=== PATIENT | female | born 1950 | race Asian ===

== ENCOUNTER 2017-05-09 17:45 | Emergency (ER) | payer SELFPAY ==
--- NOTE | 2017-05-09 21:10 | Emergency Department Report ---
HPI - General Chief Complaint: Psych Time Seen by Provider: 05/09/17 20:04 - HPI HPI: The patient's is 66-year-old female presents for evaluation of mental health. The patient presents via [facility] [employer] after being found wandering back and forth outside in a neighbor's yard. The patient admits to sadness for an unknown amount of time. The patient denies fever, headache, unexplained weight loss or weight gain, heat or cold intolerance, skin, hair, or nail changes, neuro deficits, homicidal ideations, or auditory or visual hallucinations. ED Past Medical Hx - Past Medical History Hx Psychiatric Treatment: Yes (Bipolar and schizophrenia) - Social History Smoking Status: Unknown if ever smoked - Medications Home Medications: Home Medications Medication Instructions Recorded Confirmed Last Taken Type No Known Home Medications [No 07/02/14 07/02/14 Unknown History Reported Home Medications] ED Review of Systems ROS: Stated complaint: 1013 Other details as noted in HPI Constitutional: denies: fever ENT: denies: throat or neck pain Respiratory: denies: cough, shortness of breath Cardiovascular: denies: chest pain Endocrine: denies unexplained weight loss or gain Gastrointestinal: denies: abdominal pain, nausea Genitourinary: denies: dysuria Musculoskeletal: denies: leg swelling Skin: denies: rash Neurological: denies: headache Hematological/Lymphatic: denies: easy bleeding or easy bruising Psych: admits to sadness Physical Exam - Physical Exam Vital Signs: Vital Signs 05/09/17 20:04 Respiratory 16 Rate Physical Exam: General: well-nourished, well-developed, no acute distress Head: Normocephalic, atraumatic Eyes: normal sclera ENT: Mucous membranes are pink and moist Neck: trachea midline, neck supple, No neck stiffness, no cervical adenopathy Respiratory: Breath sounds equal bilaterally, no wheezing, rales, or rhonchi Cardio: S1 and S2 present, no murmurs, rubs, gallops, capillary refill is brisk Abdomen: Normoactive bowel sounds, soft abdomen, no rigidity, no guarding or rebound tenderness Musc: No pitting edema Skin: No rash Neuro: no facial drooping, normal speech Psych: Flat affect, patient withdrawn, depressed mood, refuses to cooperate, delusional ED Course Vital Signs 05/09/17 20:04 Respiratory 16 Rate ED Medical Decision Making - Lab Data Result diagrams: 05/09/17 21:19 05/10/17 00:06 - Medical Decision Making The patient was seen and examined by myself. The patient is placed on a process worker and continuous pulse ox. On initial evaluation, the patient was found to be in no distress. Labs are obtained. Lab results revealed mildly elevated potassium level of 5.2, and elevated hemoglobin and hematocrit consistent with hemoconcentration exam findings of dehydration here otherwise labs are grossly unremarkable. The patient is given 1 L normal fluid bolus for treatment of her dehydration and borderline hyperkalemia. The patient is medically clear. Mental health is consulted. Mental health evaluates the patient and agrees that the patient is unable to demonstrate competence to care for herself. A 1013 is completed. Psychiatry and social work consults have been placed. Critical care attestation.: If time is entered above; I have spent that time in minutes in the direct care of this critically ill patient, excluding procedure time. ED Disposition Clinical Impression: Mood disorder, Dehydration, Acute hyperkalemia Disposition: DC/TX-65 PSY HOSP/PSY UNIT Is pt being admited?: No Does the pt Need Aspirin: No Condition: Serious Referrals: JESSICA VELIZ MD [Primary Care Provider] - 3-5 Days Time of Disposition: 21:10
[2017-05-09 21:35] LABS: Basophils % (Auto) 0.2 % (0.0-1.8); Hematocrit 43.7 % (30.3-42.9); Hemoglobin 14.4 gm/dl (10.1-14.3); Lymphocytes % (Auto) 8.6 % (13.4-35.0); Mean Corpuscular HGB Conc 33 % (30-34); Mean Corpuscular Hemoglobin 30 pg (28-32); Mean Corpuscular Volume 91 fl (79-97); Monocytes # (Auto) 0.8 K/mm3 (0.0-0.8); Platelet Count 303 K/mm3 (140-440); Red Blood Count 4.81 M/mm3 (3.65-5.03)
[2017-05-09 21:51] LABS: Calcium 9.5 mg/dL (8.4-10.2)
[2017-05-09] MEDS ORDERED: NACL 0.9% 1000 ML 1,000 ML IV ONE (23:50)
[2017-05-10] MEDS ORDERED: KIONEX PO ONE (00:02)
[2017-05-10 00:33] LABS: Calcium 9.1 mg/dL (8.4-10.2)
[2017-05-10 01:37] LABS: Bacteria,Urine 1+ /HPF (Negative); Hyaline Casts,Urine 1 /LPF; Mucus,Urine FEW /HPF
[2017-05-10 01:38] LABS: Bilirubin,Urine NEG (Negative); Blood,Urine LG (Negative); Color,Urine Amber (Yellow)
[2017-05-10 01:54] LABS: Amphetamine Screen,Urine PRESUMPTIVE NEGATIVE; Benzodiazepines Screen,Urine PRESUMPTIVE NEGATIVE; Cannabinoid Screen,Urine PRESUMPTIVE NEGATIVE; Cocaine Screen,Urine PRESUMPTIVE NEGATIVE; Methadone Screen,Urine PRESUMPTIVE NEGATIVE; Opiate Screen,Urine PRESUMPTIVE NEGATIVE
--- NOTE | 2017-05-10 03:36 | Cat Scan Report ---
FINAL REPORT EXAM: CT HEAD/BRAIN WO CON HISTORY: headache TECHNIQUE: Routine axial imaging was obtained of the brain without IV contrast. FINDINGS: The ventricular system is appropriate in size and is symmetric. There is no evidence of acute stroke or hemorrhage. The basal cisterns appear normal. The visualized sinuses are clear. The mastoid air cells are well pneumatized. The calvarium is unremarkable. IMPRESSION: No acute intracranial process.
--- NOTE | 2017-05-10 13:04 | Consultation ---
History of Present Illness - Reason for Consult Consult date: 05/10/17 Reason for consult: Mental Health Evaluation Requesting physician: ROBERT CAVAZOS - Chief Complaint Chief complaint: "Patient speak intermittently" - History of Present Psychiatric Illness 66-year-old female presents for evaluation of mental health. The patient presents via [facility] [employer] after being found wandering back and forth outside in a neighbor's yard. Today the patient is calm during the assessment. She stated her name only when asked. Per the staff, the patient speak "sometimes." She wears gloves on her hands, but will not elaborate why. The patient was admitted to [facility] in 2014 for similar bizarre behavior. Per the record in 2015, the patient has a hx of schizophrenia. Per her assigned RN, the patient isn't eating or drinking. Medications and Allergies Allergies Allergy/AdvReac Type Severity Reaction Status Date / Time No Known Allergies Allergy Unverified 07/02/14 17:03 Home Medications Medication Instructions Recorded Confirmed Last Taken Type No Known Home Medications [No 07/02/14 07/02/14 Unknown History Reported Home Medications] Past psychiatric history - Past Medical History Past Medical History: other (Unable to obtain) Past Surgical History: Other (Unable to obtain) - past Psychiatric treatment and history psychiatric treatment history: Unable to obtain a psy hx and fam psy hx. - Social History Social history: other (Unabel to obtain) Mental Status Exam - Vital signs Last Vital Signs Temp 98.9 F 05/09/17 21:43 Pulse 80 05/10/17 03:10 Resp 18 05/09/17 21:43 BP 120/65 05/09/17 21:43 Pulse Ox 97 05/09/17 21:43 - Exam Narrative exam: MSE: Appearance: calm Behavior: poor eye contact Speech: regular rate and low tone Mood: unable to assess Affect: flat Thought Process: unable to assess Thought Content: unable to assess Motor Activity: ambulatory Cognition: alert Insight: unable to assess Judgment: unable to assess Results Result Diagrams: 05/09/17 21:19 05/10/17 00:06 Abnormal lab results 05/09/17 05/09/17 05/09/17 Range/Units 21:19 21:19 21:19 WBC 11.7 H (4.5-11.0) K/mm3 Hgb 14.4 H (10.1-14.3) gm/dl Hct 43.7 H (30.3-42.9) % Lymph % (Auto) 8.6 L (13.4-35.0) % Lymph # 1.0 L (1.2-5.4) K/mm3 Seg Neutrophils % 84.2 H (40.0-70.0) % Seg Neutrophils # 9.8 H (1.8-7.7) K/mm3 Sodium 134 L (137-145) mmol/L Potassium 5.2 H (3.6-5.0) mmol/L Chloride 92.6 L (98-107) mmol/L Glucose 110 H (65-100) mg/dL Acetaminophen < 5.0 L (10.0-30.0) ug/mL 05/10/17 Range/Units 00:06 WBC (4.5-11.0) K/mm3 Hgb (10.1-14.3) gm/dl Hct (30.3-42.9) % Lymph % (Auto) (13.4-35.0) % Lymph # (1.2-5.4) K/mm3 Seg Neutrophils % (40.0-70.0) % Seg Neutrophils # (1.8-7.7) K/mm3 Sodium 133 L (137-145) mmol/L Potassium (3.6-5.0) mmol/L Chloride 94.8 L (98-107) mmol/L Glucose 135 H (65-100) mg/dL Acetaminophen (10.0-30.0) ug/mL All other labs normal. Assessment and Plan Assessment and plan: Impression: Unspecified Psychosis. Today the patient is calm during the assessment. Per her assigned RN, the patient is not eating and drinking. CK 918. Hx of Schizophrenia per the record 2015 Recommendation/Plan: Continue 1013 with placement to inpatient psy services. Hold antipsychotic for the next 24 hours and recheck CK in the AM. Zyprexa Zydis for psychosis will be started once CK trend downward. The patient did receive a bolus of NS. Encourage patient to eat and drink.
[2017-05-10] MEDS ORDERED: NACL 0.9% 1000 ML 1,000 ML IV ONE (14:05)
--- NOTE | 2017-05-11 15:11 | Progress Note ---
Subjective - Reason for Consult Consult date: 05/11/17 Reason for consult: Psychiatric Follow-up Evaluation - Chief Complaint Chief complaint: Patient is nonverbal. Kira 66-year-old female who presents to the ER for evaluation of mental health. Patient was found wandering back and forth outside in a neighbor's yard. Today the patient is calm during the assessment. However, patient is nonverbal. Selectively mute. She only stares and smile at provider. Per RN the police called looking for patient on 05-11-17. Per police there was a missing person report filed by patient's heel caser. Patient was living with her 94 year old mother until patient's mother fell and broke her hip, and had to be placed in a correction. Now patient lives in the home alone and has outpatient services. Per heel caser patient is at her baseline. No behavioral disturbances were noted/reported. Police was not able to provide RN with heel caser contact information. Mental Status Exam - Vital signs Last Vital Signs Temp 97.9 F 05/11/17 10:35 Pulse 78 05/11/17 10:35 Resp 18 05/11/17 10:45 BP 97/42 05/11/17 10:35 Pulse Ox 99 05/11/17 10:45 - Exam Narrative exam: Narrative exam: Appearance: Hospital Gown Attitude/Behavior: Calm and Cooperative Sensorium: Unable to Assess Orientation: Unable to Assess Speech: Selectively Mute. Nonverbal. Mood: Unable to assess Affect: Unable to assess Thought Process: Unable to assess Thought Content: Unable to assess Motor Activity: Ambulatory Cognition: Alert Insight: Unable to assess Judgment: Unable to assess Assessment and Plan Assessment and plan: Impression: Unspecified Psychosis. Today the patient is calm during the assessment. Patient nonverbal. Current CK level is 591. Per her assigned RN, the patient is not eating and drinking. Patient only stares and smile. Hx of Schizophrenia per the record 2014 Recommendation/Plan: 1. Continue 1013 with placement to inpatient psychiatric services. 2. Continue Zyprexa for mood/psychosis. 3. Encourage patient to communicate, eat and drink. 4. Attempt to reach heel caser to assist with outpatient psychiatric services.
--- NOTE | 2017-05-12 10:55 | Progress Note ---
Subjective - Reason for Consult Consult date: 05/12/17 Reason for consult: Psychiatry Follow-up - Chief Complaint Chief complaint: "Patient smiles" 66-year-old female presents for evaluation of mental health. The patient presents via [facility] [employer] after being found wandering back and forth outside in a neighbor's yard. Today the patient is calm during the assessment. The patient continues to smile when asked questions. Per collateral information from her daughter Radha Baeza at [phone], her mother has had several psychotic episodes with a hx of schizophrenia. She stated that her mother has been to multiple inpatient psy settings. Per the notes, the patient refused her dinner yesterday, but took her medication last night. Mental Status Exam - Vital signs Last Vital Signs Temp 98 F 05/12/17 10:40 Pulse 66 05/12/17 10:40 Resp 18 05/12/17 10:40 BP 98/47 05/12/17 10:40 Pulse Ox 98 05/12/17 10:40 - Exam Narrative exam: MSE: Appearance: calm Behavior: stare Speech: unable to assess Mood: unable to assess Affect: constricted Thought Process: unable to assess Thought Content: unable to assess Motor Activity: ambulatory Cognition: alert Insight: unable to assess Judgment: unable to assess Assessment and Plan Impression: Unspecified Psychosis. Today the patient is calm during the assessment. The patient still not communicating, she just smiles when asked questions. Hx of Schizophrenia per the record 2014 Recommendation/Plan: Continue 1013 with placement to inpatient psy services. Ativan challenge in the AM to R/O catatonia if patient continue to refuse to eat and drink. Continue Zyprexa Zydis 5 mg PO HS ODT for psychosis. Encourage patient to eat and drink.
[2017-05-13] MEDS ORDERED: NACL 0.9% 1000 ML 1,000 ML IV ONE ×2 (13:28→16:47)
--- NOTE | 2017-05-13 13:40 | Progress Note ---
Subjective - Reason for Consult Consult date: 05/13/17 Reason for consult: Psychiatry Follow-up - Chief Complaint Chief complaint: "Patient still smiles" 66-year-old female presents for evaluation of mental health. The patient presents via [facility] [employer] after being found wandering back and forth outside in a neighbor's yard. Today the patient is calm during the assessment. The patient continues to smile when asked questions. Per the staff, no behavioral disturbance overnight. Mental Status Exam - Vital signs Last Vital Signs Temp 98.4 F 05/13/17 10:00 Pulse 82 05/13/17 12:27 Resp 16 05/13/17 13:28 BP 97/54 05/13/17 12:27 Pulse Ox 97 05/13/17 13:28 - Exam Narrative exam: MSE: Appearance: calm Behavior: stare Speech: unable to assess Mood: unable to assess Affect: constricted Thought Process: unable to assess Thought Content: unable to assess Motor Activity: ambulatory Cognition: alert Insight: unable to assess Judgment: unable to assess Assessment and Plan Impression: Unspecified Psychosis. Today the patient is calm during the assessment. The patient is selectively mute. Hx of Schizophrenia per the record 2014 Recommendation/Plan: Continue 1013 with placement to inpatient psy services. Ativan challenge (to R/O catatonia) on hold until patient's BP increases. Medical team to address BP. Reassess in 24 hours and continue Zyprexa Zydis 5 mg PO HS ODT for psychosis. Encourage patient to eat and drink.
[2017-05-13] MEDS ORDERED: NACL 0.9% 1000 ML 1,000 ML ONE (16:47)
[2017-05-14 15:39] VITALS: BP 97/51
== END 2017-05-14 15:40 ==
LOC: EEVIPCON 17:45 → ED 17:45
DX: F20.9 Schizophrenia, unspecified (principal); E87.5 Hyperkalemia; E86.0 Dehydration; F31.9 Bipolar disorder, unspecified; R51 Headache; Z79.899 Other long term (current) drug therapy
CPT/HCPCS: 36415; 70450; 80048; 80307; 81001; 82550; 83880; 85025; 96360; 96361; 99285; G0480; J7030; 80320